=== PATIENT | male | born 1975 | race American Indian/Alaskan Native ===

== ENCOUNTER 2021-10-16 05:31 | Inpatient (IN) | payer BC, OTHER ==
[2021-10-16] MEDS ORDERED: SODIUM CHLORIDE 0.9% 1000 ML 1,000 ML ONE (05:53)
[2021-10-16] MEDS ORDERED: MORPHINE 4 MG/1 ML INJ IV ONE (06:01)
[2021-10-16] MEDS ORDERED: ONDANSETRON 4 MG/2 ML INJ IV ONE (06:01)
--- NOTE | 2021-10-16 06:11 | Emergency Department Report ---
ED Abdominal Pain HPI - General Chief Complaint: Dyspnea/Respdistress Stated Complaint: DIFFICULTY BREATHING Time Seen by Provider: 10/16/21 06:00 Source: patient Mode of arrival: Ambulatory Limitations: Other - History of Present Illness Initial Comments: Patient is a 45-year-old male presenting to ED with complaint of acute onset sharp right lower quadrant pain radiating to his flank approximately 1 hour ago. He reports history of kidney stones. States he also developed chest discomfort and shortness of breath. He denies history of coronary artery disease. States he had COVID last year and was placed on a ventilator for 8 days. He denies any fever or chills. - Related Data Allergies Allergy/AdvReac Type Severity Reaction Status Date / Time Penicillins Allergy Unknown Verified 10/16/21 05:42 ED Review of Systems ROS: Stated complaint: DIFFICULTY BREATHING Other details as noted in HPI Comment: All other systems reviewed and negative Constitutional: denies: chills, fever ENT: denies: ear pain, throat pain Respiratory: shortness of breath Cardiovascular: chest pain Gastrointestinal: abdominal pain Musculoskeletal: denies: back pain, joint swelling, arthralgia Skin: denies: rash, lesions Neurological: denies: headache, weakness, paresthesias Psychiatric: denies: anxiety, depression ED Physical Exam - General Limitations: No Limitations General appearance: alert, in distress - Head Head exam: Present: atraumatic, normocephalic - Respiratory Respiratory exam: Present: normal lung sounds bilaterally. Absent: respiratory distress, wheezes, rales - Cardiovascular Cardiovascular Exam: Present: regular rate, normal rhythm, normal heart sounds - GI/Abdominal GI/Abdominal exam: Present: soft. Absent: distended, tenderness - Extremities Exam Extremities exam: Present: normal inspection - Back Exam Back exam: Present: normal inspection - Neurological Exam Neurological exam: Present: alert, oriented X3 - Psychiatric Psychiatric exam: Present: normal affect, normal mood - Skin Skin exam: Present: warm, dry, intact, normal color ED Course Vital Signs 10/16/21 10/16/21 10/16/21 05:46 06:00 06:01 Pulse Rate 76 Respiratory 12 Rate Blood Pressure 226/150 Blood Pressure [Left] O2 Sat by Pulse 95 92 Oximetry 10/16/21 10/16/21 10/16/21 06:15 06:36 09:13 Pulse Rate 83 62 Respiratory 28 H 19 Rate Blood Pressure 228/153 Blood Pressure 191/121 [Left] O2 Sat by Pulse 93 94 98 Oximetry 10/16/21 10:24 Pulse Rate 63 Respiratory 16 Rate Blood Pressure Blood Pressure 184/104 [Left] O2 Sat by Pulse 99 Oximetry ED Medical Decision Making - Lab Data Result diagrams: 10/16/21 05:57 10/16/21 05:57 - Medical Decision Making Patient presenting to the emergency department with acute right lower quadrant pain radiating to the right flank. He also presented with shortness of breath. He was hypoxic in triage requiring supplemental oxygen. He is currently at 6 L satting 97 to 98%. Chest x-ray reveals bilateral pneumonia. WBC count is within normal limits. He was given IV Levaquin. CT abdomen and pelvis reveals a 5 mm calculus in the distal right ureter with mild hydro-. Creatinine 2.2. Urinalysis unremarkable. I discussed case with urologist Dr. Trivedi who states that in these instances they will usually observe and allow the stone to pass. States he will see patient as an outpatient. Will admit for likely community- acquired pneumonia. COVID PCR pending. Critical care attestation.: If time is entered above; I have spent that time in minutes in the direct care of this critically ill patient, excluding procedure time. ED Disposition Clinical Impression: Bilateral pneumonia, Ureteral calculus, right Disposition: 09 ADMITTED INPATIENT Is pt being admited?: Yes Condition: Stable Instructions: Bacterial Pneumonia (ED)
[2021-10-16] MEDS ORDERED: hydrALAZINE 20 MG/1 ML INJ IV ONE (06:13)
[2021-10-16 06:24] LABS: ABG Base Excess -4.1 mmol/L (-2.0-3.0); ABG HCO3 19.1 mmol/L (20.0-26.0); ABG Methemoglobin 0.5 % (0.0-1.5); ABG Oxygen Saturation 96.9 % (95.0-99.0); ABG PCO2 31.1 mm Hg; ABG PH 7.408 pH Units (7.350-7.450); ABG PO2 87.7 mm Hg (80.0-90.0)
[2021-10-16 06:39] LABS: Basophils % (Auto) 0.5 % (0.0-1.8); Eosinophils # (Auto) 0.2 K/mm3 (0.0-0.4); Eosinophils % (Auto) 4.8 % (0.0-4.3); Hematocrit 49.8 % (35.5-45.6); Hemoglobin 16.5 gm/dl (11.8-15.2); Lymphocytes # (Auto) 2.3 K/mm3 (1.2-5.4); Lymphocytes % (Auto) 53.4 % (13.4-35.0); Mean Corpuscular HGB Conc 33 % (32-34); Mean Corpuscular Volume 93 fl (84-94); Monocytes # (Auto) 0.2 K/mm3 (0.0-0.8); Monocytes % (Auto) 5.1 % (0.0-7.3); Platelet Count 177 K/mm3 (140-440); Red Blood Count 5.37 M/mm3 (3.65-5.03); Red Cell Distribution Width 15.6 % (13.2-15.2)
[2021-10-16 06:47] LABS: INR 0.96 (0.87-1.13)
[2021-10-16] MEDS ORDERED: KETOROLAC 30 MG/1 ML INJ IV ONE (06:47)
[2021-10-16 06:59] LABS: Calcium 9.7 mg/dL (8.4-10.2)
--- NOTE | 2021-10-16 06:59 | XRay Report ---
CHEST 1 VIEW INDICATION / CLINICAL INFORMATION: Shortness of breath. COMPARISON: None available. FINDINGS: SUPPORT DEVICES: None. HEART / MEDIASTINUM: Cardiomegaly LUNGS / PLEURA: Moderate bilateral parenchymal disease No pneumothorax. ADDITIONAL FINDINGS: No significant additional findings. IMPRESSION: 1. Bilateral pneumonia Signer Name: Miller Gutierrez MD Signed: 10/16/2021 6:55 AM Workstation Name: [id number]
--- NOTE | 2021-10-16 08:55 | Cat Scan Report ---
CT ABDOMEN AND PELVIS WITHOUT CONTRAST INDICATION / CLINICAL INFORMATION: Right flank pain. TECHNIQUE: Axial CT images were obtained through the abdomen and pelvis without IV contrast. All CT scans at this location are performed using CT dose reduction for ALARA by means of automated exposure control. COMPARISON: None available. FINDINGS: LOWER CHEST: Small basilar effusions. Patchy infiltrates at the lung bases. Cardiomegaly. LIVER: No significant abnormality. GALLBLADDER: No significant abnormality. BILE DUCTS: No significant abnormality. PANCREAS: No significant abnormality. SPLEEN: No significant abnormality. ADRENALS: No significant abnormality. RIGHT KIDNEY / URETER: Several nonobstructing stones with the largest the lower pole measuring 4 mm. Moderate distention of the right renal collecting system and ureter extending the level of a 5 mm sto ne at the distal ureterovesical junction. LEFT KIDNEY / URETER: Numerous nonobstructing stones the largest measuring 3-4 mm. 1.4 cm lesion vera es from the anterior aspect (series 2, image 57). This is not a simple cyst. STOMACH / SMALL BOWEL: No significant abnormality. COLON: No significant abnormality. APPENDIX: No significant abnormality. PERITONEUM: No free fluid. No free air. No fluid collection. LYMPH NODES: No significant adenopathy. VASCULAR STRUCTURES: No significant abnormality. URINARY BLADDER: Mild symmetric thickening. REPRODUCTIVE ORGANS: Mild prostate enlargement. ADDITIONAL FINDINGS: Small fat-containing umbilical hernia. SKELETAL SYSTEM: No significant abnormality. IMPRESSION: 1. 5 mm stone distal right ureter with moderate obstruction. 2. Nonobstructing calyceal stones bilaterally. 3. Small basilar effusions with bibasilar infiltrates worrisome for pneumonia. 4. Mild prostate enlargement with element of bladder outlet obstruction. Signer Name: Ananda Persaud MD Signed: 10/16/2021 8:51 AM Workstation Name: [id number]
[2021-10-16 09:09] LABS: Bilirubin,Urine NEG (Negative); Blood,Urine MOD (Negative); Color,Urine Straw (Yellow); Urobilinogen,Urine < 2.0 mg/dL (<2.0)
[2021-10-16] MEDS ORDERED: oxyCODONE /ACETAMINOPHEN 5-325MG TAB PO PRN (12:47)
[2021-10-16] MEDS ORDERED: ALBUTEROL 2.5 MG/3 ML NEBU IH PRN (12:47)
[2021-10-16] MEDS ORDERED: ONDANSETRON 4 MG/2 ML INJ IV PRN (12:47)
[2021-10-16] MEDS ORDERED: ACETAMINOPHEN 325 MG TAB PO PRN (12:47)
[2021-10-16] MEDS ORDERED: HYDROmorphone 0.5 MG/0.5 ML INJ IV PRN (12:47)
[2021-10-16] MEDS ORDERED: methylPREDNISolone Sod Succinate 125 MG/2 ML INJ ONE (13:08)
[2021-10-16 14:44] LABS: C-Reactive Protein 1.1 mg/dL (0.00-1.30)
[2021-10-16] MEDS: TAMSULOSIN 0.4 MG CAP PO SCH (14:59)
[2021-10-16] MEDS: methylPREDNISolone Sod Succinate 40 MG/1 ML INJ IV SCH ×2 (14:59→22:12)
--- NOTE | 2021-10-16 16:22 | History and Physical Report ---
History of Present Illness Date of admission: 10/16/21 12:47 Chief complaint: My side was hurting and it got hard to breathe History of present illness: 45 YO Male with Obesity Hypoventilation Syndrome, Nephrolithiasis presents to ED for evaluation. Patient reports "my right side is hurting". Patient states that he has experienced abdominal discomfort over the past week with persistent and worsening symptoms over the same timeframe. Patient states his pain is intermittent in nature, 6/10, localized to the right flank, worsened with movement, relieved with nonmovement. Patient transported to [facility] via private vehicle for further care and evaluation of the aforementioned symptoms. The patient was seen and evaluated in the emergency department. All lab and imaging studies reviewed. The patient was found to have a pulse oximetry of 88% on room air which is consistent with acute hypoxemic respiratory failure. Chest x-ray revealed bilateral pneumonia. Patient with CT scan of the abdomen and pelvis and was found to have nephrolithiasis complicated by renal colic, acute kidney injury. Patient also found to have clinical symptoms consistent with CHF decompensation. Patient admitted to medical floor and initiated on pneumonia protocol, coronavirus protocol, as well as CHF protocol. Urology team consulted in ED and will see the patient in the office as an outpatient. Patient denies fever, chills, chest pain, palpitation, productive cough, skin rash, recent contact, ingestion of food/water from new or different sources, hematuria, interruptions in urine stream, recent contact, known exposure to COVID-19. No prior admission for review. No medication listed at time of admission for reconciliation. Advanced care planning conducted in ED. Past History Past Medical History: other (See HPI) Past Surgical History: No surgical history, Other (Reviewed) Social history: single. denies: smoking, alcohol abuse, prescription drug abuse Family history: diabetes, hypertension Medications and Allergies Allergies Allergy/AdvReac Type Severity Reaction Status Date / Time Penicillins Allergy Unknown Verified 10/16/21 05:42 Home Medications Medication Instructions Recorded Confirmed Last Taken Type Amiodarone [Cordarone 200 MG TAB] 200 mg PO DAILY 10/16/21 10/16/21 10/15/21 09:00 History Apixaban [Eliquis] 5 mg PO BID 10/16/21 10/16/21 10/15/21 09:00 History Isosorbide Dinitrate [Isordil] 20 mg PO TID 10/16/21 10/16/21 10/15/21 09:00 History Potassium Chloride [K-Dur] 20 meq PO BID 10/16/21 10/16/21 10/15/21 09:00 History Torsemide [Demadex] 20 mg PO DAILY 10/16/21 10/16/21 10/15/21 09:00 History carvediloL [Coreg] 25 mg PO BID 10/16/21 10/16/21 10/15/21 09:00 History hydrALAZINE [Apresoline TAB] 100 mg PO TID 10/16/21 10/16/21 10/15/21 09:00 Hi story Active Meds: Active Medications Acetaminophen (Acetaminophen 325 Mg Tab) 650 mg PO Q4H PRN PRN Reason: Pain MILD(1-3)/Fever >100.5/ABRAHAM Albuterol (Albuterol 2.5 Mg/3 Ml Nebu) 2.5 mg IH Q4HRT PRN PRN Reason: Shortness Of Breath Ascorbic Acid (Ascorbic Acid 500 Mg Tab) 500 mg PO BID NEIL Cholecalciferol (Cholecalciferol (Vit D3) 400 Unit Tab) 1,000 unit PO QDAY NEIL Heparin Sodium (Porcine) (Heparin 5,000 Unit/1 Ml Vial) 5,000 unit SUB-Q Q12HR NEIL Hydromorphone HCl (Hydromorphone 0.5 Mg/0.5 Ml Inj) 0.5 mg IV Q13H PRN PRN Reason: Pain , Severe (7-10) Last Admin: 10/16/21 13:38 Dose: 0.5 mg Levofloxacin (Levofloxacin 750 Mg Tab) 750 mg PO Q24HR NEIL; Protocol Methylprednisolone Sodium Succinate (Methylprednisolone Sod Succinate 40 Mg/1 Ml Inj) 40 mg IV Q8HR NEIL Last Admin: 10/16/21 14:59 Dose: 40 mg Ondansetron HCl (Ondansetron 4 Mg/2 Ml Inj) 4 mg IV Q8H PRN PRN Reason: Nausea And Vomiting Oxycodone/Acetaminophen (Oxycodone /Acetaminophen 5-325mg Tab) 1 tab PO Q6H PRN PRN Reason: Pain, Moderate (4-6) Prazosin HCl (Prazosin 1 Mg Cap) 1 mg PO Q12HR NEIL Sodium Chloride (Sodium Chloride 0.9% 10 Ml Flush Syringe) 10 ml IV BID [facility] Sodium Chloride (Sodium Chloride 0.9% 10 Ml Flush Syringe) 10 ml IV PRN PRN PRN Reason: LINE FLUSH Tamsulosin HCl (Tamsulosin 0.4 Mg Cap) 0.4 mg PO QDAY [facility] Last Admin: 10/16/21 14:59 Dose: 0.4 mg Zinc Sulfate (Zinc Sulfate 220 Mg Cap) 220 mg PO BID [facility] Review of Systems Constitutional: no weight loss, no weight gain, no fever, no chills Ears, nose, mouth and throat: no ear pain, no ear discharge, no nose pain, no nasal congestion Cardiovascular: shortness of breath, no chest pain, no orthopnea, no p alpitations, no edema Respiratory: no cough, no excessive sputum, no hemoptysis Gastrointestinal: abdominal pain, nausea, no vomiting Genitourinary Male: flank pain, no dysuria, no hematuria, no discharge, no urinary frequency, no urinary hesitancy Rectal: no pain, no incontinence, no bleeding Musculoskeletal: no neck stiffness, no neck pain, no shooting arm pain, no arm n umbness/tingling, no low back pain Integumentary: no rash, no pruritis, no sores, no jaundice Neurological: no head injury, no paralysis, no weakness, no numbness, no tingling, no syncope, no tremors Psychiatric: no anxiety, no sleep disturbances, no hypersomnia, no change in appetite, no change in libido, no suicidal ideation, no disorientation Endocrine: no cold intolerance, no heat intolerance, no polyphagia, no excessive thirst, no polydipsia, no polyuria, no nocturia Hematologic/Lymphatic: no easy bruising, no easy bleeding, no lymphadenopathy Allergic/Immunologic: no urticaria, no persistent infections, no anaphylaxis, no angioedema Exam - Constitutional Vitals: Temp Pulse Resp BP Pulse Ox 64 16 198/120 98 10/16/21 12:49 10/16/21 12:49 10/16/21 12:49 10/16/21 12:49 General appearance: Present: mild distress, obese - EENT Eyes: Present: PERRL ENT: hearing intact, clear oral mucosa - Neck Neck: Present: supple, normal ROM - Respiratory Respiratory effort: normal Respiratory: bilateral: diminished, rhonchi - Cardiovascular Heart Sounds: Present: S1 & S2. Absent: rub, click - Extremities Extremities: pulses symmetrical, No edema Peripheral Pulses: within normal limits - Abdominal General gastrointestinal: Present: soft, tender, non-distended, normal bowel sounds, absent bowel sounds, hepatomegaly, splenomegaly Male genitourinary: Present: normal - Integumentary Integumentary: Present: clear, warm, dry - Musculoskeletal Musculoskeletal: gait normal, strength equal bilaterally - Psychiatric Psychiatric: appropriate mood/affect, intact judgment & insight - Neurologic Neurologic: CNII-XII intact, moves all extremities HEART Score - HEART Score Troponin: Troponin T 0.025 ng/mL (0.00-0.029) 10/16/21 05:57 Results - Labs CBC & Chem 7: 10/16/21 05:57 10/16/21 05:57 Labs: Abnormal lab results 10/16/21 10/16/21 10/16/21 Range/Units 05:57 05:57 06:05 WBC 4.4 L (4.5-11.0) K/mm3 RBC 5.37 H (3.65-5.03) M/mm3 Hgb 16.5 H (11.8-15.2) gm/dl Hct 49.8 H (35.5-45.6) % RDW 15.6 H (13.2-15.2) % Lymph % (Auto) 53.4 H (13.4-35.0) % Eos % (Auto) 4.8 H (0.0-4.3) % Seg Neutrophils % 36.2 L (40.0-70.0) % Seg Neutrophils # 1.6 L (1.8-7.7) K/mm3 ABG HCO3 19.1 L (20.0-26.0) mmol/L ABG Base Excess -4.1 L (-2.0-3.0) mmol/L Oxyhemoglobin 94.7 L (95.0-99.0) % BUN 26 H (9-20) mg/dL Creatinine 2.2 H (0.8-1.3) mg/dL Glucose 145 H (75-100) mg/dL Lactate Dehydrogenase (91-180) units/L NT-Pro-B Natriuret Pep 1063 H (0-450) pg/mL 10/16/21 Range/Units 13:00 WBC (4.5-11.0) K/mm3 RBC (3.65-5.03) M/mm3 Hgb (11.8-15.2) gm/dl Hct (35.5-45.6) % RDW (13.2-15.2) % Lymph % (Auto) (13.4-35.0) % Eos % (Auto) (0.0-4.3) % Seg Neutrophils % (40.0-70.0) % Seg Neutrophils # (1.8-7.7) K/mm3 ABG HCO3 (20.0-26.0) mmol/L ABG Base Excess (-2.0-3.0) mmol/L Oxyhemoglobin (95.0-99.0) % BUN (9-20) mg/dL Creatinine (0.8-1.3) mg/dL Glucose (75-100) mg/dL Lactate Dehydrogenase 288 H (91-180) units/L NT-Pro-B Natriuret Pep (0-450) pg/mL Assessment and Plan - Patient Problems (1) Acute hypoxemic respiratory failure Current Visit: Yes Status: Acute Plan to address problem: Chest x-ray, supplemental oxygen, pulse oximetry, nebulizer therapy, pulmonary toilet. (2) Pneumonia Current Visit: Yes Status: Acute Plan to address problem: Pneumonia protocol: Chest x-ray, CBC, CMP, supplemental oxygen, pulse oximetry, nebulizer therapy, blood culture. (3) Suspected 2019 novel coronavirus infection Current Visit: Yes Status: Acute Plan to address problem: Coronavirus protocol: IV steroid therapy, IV antibiotic therapy, prophylactic anticoagulation, vitamin C therapy, vitamin D therapy, zinc therapy, (4) Obesity hypoventilation syndrome Current Visit: Yes Status: Acute Plan to address problem: Balanced diet, increase physical activity at discharge, outpatient pulmonary follow-up for sleep study. (5) Acute kidney injury (LAI) with acute tubular necrosis (ATN) Current Visit: Yes Status: Acute Plan to address problem: IV fluid resuscitation therapy, BMP, repeat BMP in a.m., monitor fluid balance, monitor urine output every shift. (6) Ureteral calculus, right Current Visit: Yes Status: Acute Plan to address problem: Urology team notified in ED. Patient does not want intervention at this time. Patient will be seen and evaluated in the urology office as outpatient. (7) DVT prophylaxis Current Visit: Yes Status: Acute Plan to address problem: SCD to bilateral lower extremities while in bed (8) Advance care planning Current Visit: Yes Status: Acute Plan to address problem: Disease education conducted, care plan discussed, diagnoses discussed, prognosis discussed, patient is full code. Patient acknowledges understanding and agre ement with care plan, +30 minutes. (9) Preventative health care Current Visit: Yes Status: Acute Plan to address problem: Patient counseled regarding meal planning, balanced diet, increase physical activity at discharge, outpatient follow-up with primary care physician for all age and risk factor appropriate screening test. +30 minutes.
[2021-10-16] MEDS: hydrALAZINE 100 MG TAB PO SCH ×2 (17:04→22:09)
[2021-10-16] MEDS: carvediloL 25 MG TAB PO SCH ×2 (17:04→22:20)
[2021-10-16] MEDS: AMIODARONE 200 MG TAB PO SCH (17:04)
[2021-10-16 18:38] LABS: Free T4 (Free Thyroxine) 1.73 ng/dL (0.76-1.46)
[2021-10-16] MEDS ORDERED: NON-FORMULARY EACH (Torsemide [Demadex] 20 MG Tablet) PO SCH (22:00)
[2021-10-16] MEDS ORDERED: NON-FORMULARY EACH (Apixaban 5 MG Tablet) PO SCH (22:00)
[2021-10-16] MEDS: ZINC SULFATE 220 MG CAP PO SCH (22:09)
[2021-10-16] MEDS: ASCORBIC ACID 500 MG TAB PO SCH (22:10)
[2021-10-16] MEDS: TORSEMIDE 10 MG TAB PO SCH (22:10)
[2021-10-16] MEDS: POTASSIUM CHLORIDE ER 20 MEQ TAB PO SCH (22:10)
[2021-10-16] MEDS: HEPARIN 5,000 UNIT/1 ML VIAL SUB-Q SCH (22:11)
[2021-10-16] MEDS: ISOSORBIDE DINITRATE 20 MG TAB PO SCH (22:19)
[2021-10-16] MEDS: PRAZOSIN 1 MG CAP PO SCH (23:00)
[2021-10-17] MEDS: methylPREDNISolone Sod Succinate 40 MG/1 ML INJ IV SCH ×3 (05:46→22:49)
[2021-10-17 06:02] LABS: Hematocrit 49.3 % (35.5-45.6); Hemoglobin 16.4 gm/dl (11.8-15.2); Mean Corpuscular HGB Conc 33 % (32-34); Mean Corpuscular Volume 92 fl (84-94); Platelet Count 154 K/mm3 (140-440); Red Blood Count 5.36 M/mm3 (3.65-5.03); Red Cell Distribution Width 15.5 % (13.2-15.2)
[2021-10-17 06:28] LABS: Albumin 4.3 g/dL (3.9-5); Calcium 9.3 mg/dL (8.4-10.2)
[2021-10-17 06:55] LABS: Basophils % (Manual) 0 % (0.0-1.8); Eosinophils % (Manual) 0 % (0.0-4.3); Monocytes % (Manual) 0 % (0.0-7.3); Total Cells Counted 100
[2021-10-17 06:56] LABS: Platelet Estimate Consistent w Auto; RBC Morphology Normal
[2021-10-17] MEDS: PRAZOSIN 1 MG CAP PO SCH ×2 (09:26→22:53)
[2021-10-17] MEDS: carvediloL 25 MG TAB PO SCH ×2 (09:27→22:53)
[2021-10-17] MEDS: CHOLECALCIFEROL (VIT D3) 1000 UNIT (25 mcg) TAB PO SCH (09:27)
[2021-10-17] MEDS: ISOSORBIDE DINITRATE 20 MG TAB PO SCH ×3 (09:27→22:54)
[2021-10-17] MEDS: ZINC SULFATE 220 MG CAP PO SCH ×2 (09:27→22:49)
[2021-10-17] MEDS: levoFLOXacin 750 MG TAB PO SCH (09:27)
[2021-10-17] MEDS: ASCORBIC ACID 500 MG TAB PO SCH ×2 (09:27→22:49)
[2021-10-17] MEDS: TAMSULOSIN 0.4 MG CAP PO SCH (09:27)
[2021-10-17] MEDS: POTASSIUM CHLORIDE ER 20 MEQ TAB PO SCH ×2 (09:28→22:49)
[2021-10-17] MEDS: hydrALAZINE 100 MG TAB PO SCH ×3 (09:28→22:54)
[2021-10-17] MEDS: HEPARIN 5,000 UNIT/1 ML VIAL SUB-Q SCH ×2 (09:28→22:55)
[2021-10-17] MEDS: AMIODARONE 200 MG TAB PO SCH (09:28)
[2021-10-17] MEDS: TORSEMIDE 10 MG TAB PO SCH (09:31)
[2021-10-17] MEDS ORDERED: CHOLECALCIFEROL (VIT D3) 400 UNIT TAB PO SCH (10:00)
--- NOTE | 2021-10-17 11:59 | Progress Note ---
Assessment and Plan Assessment and plan: 45 YO Male with Obesity Hypoventilation Syndrome, Nephrolithiasis presents to ED for evaluation of abdominal discomfort over the past week [employer]. The patient was found to have a pulse oximetry of 88% on room air which is consistent with acute hypoxemic respiratory failure. Chest x-ray revealed bilateral pneumonia. Patient with CT scan of the abdomen and pelvis and was found to have nephrolithiasis complicated by renal colic, acute kidney injury. Urology team consulted in ED and will see the patient in the office as an outpatient. Acute hypoxic respiratory failure Bilateral pneumonia Suspected COVID-19 infection Obesity hypoventilation syndrome Acute kidney injury Right ureteral calculus 10/17/2021. Patient reports that he passed the stone last night while urinating. Patient denies any abdominal or flank pain currently. However, creatinine is worse at 2.9 today. We will consult nephrology for further evaluation. We do not have a baseline creatinine to compare. Continue IV fluid hydration. Follow-up echocardiogram. History Interval history: No new issues overnight Hospitalist Physical - Constitutional Vitals: Temp Pulse Resp BP Pulse Ox 98.6 F 62 20 146/93 100 10/17/21 04:29 10/17/21 04:29 10/17/21 04:29 10/17/21 04:29 10/17/21 07:28 General appearance: Present: no acute distress, obese - EENT Eyes: Present: PERRL, EOM intact ENT: hearing intact, clear oral mucosa, dentition normal - Neck Neck: Present: supple, normal ROM - Respiratory Respiratory effort: normal Respiratory: bilateral: CTA - Cardiovascular Rhythm: regular Heart Sounds: Present: S1 & S2. Absent: gallop, rub - Extremities Extremities: no ischemia, No edema, Full ROM - Abdominal General gastrointestinal: soft, non-tender, non-distended, normal bowel sounds - Integumentary Integumentary: Present: clear, warm, dry - Neurologic Neurologic: CNII-XII intact, moves all extremities HEART Score - HEART Score Troponin: Troponin T 0.025 ng/mL (0.00-0.029) 10/16/21 05:57 Results - Labs CBC & Chem 7: 10/17/21 05:25 10/17/21 05:25 Labs: Laboratory Last Values WBC 10.8 K/mm3 (4.5-11.0) 10/17/21 05:25 RBC 5.36 M/mm3 (3.65-5.03) H 10/17/21 05:25 Hgb 16.4 gm/dl (11.8-15.2) H 10/17/21 05:25 Hct 49.3 % (35.5-45.6) H 10/17/21 05:25 MCV 92 fl (84-94) 10/17/21 05:25 MCH 31 pg (28-32) 10/17/21 05:25 MCHC 33 % (32-34) 10/17/21 05:25 RDW 15.5 % (13.2-15.2) H 10/17/21 05:25 Plt Count 154 K/mm3 (140-440) 10/17/21 05:25 Lymph % (Auto) 53.4 % (13.4-35.0) H 10/16/21 05:57 [place] % (Auto) 5.1 % (0.0-7.3) 10/16/21 05:57 Eos % (Auto) 4.8 % (0.0-4.3) H 10/16/21 05:57 Baso % (Auto) 0.5 % (0.0-1.8) 10/16/21 05:57 Lymph # (Auto) 2.3 K/mm3 (1.2-5.4) 10/16/21 05:57 [place] # (Auto) 0.2 K/mm3 (0.0-0.8) 10/16/21 05:57 Eos # (Auto) 0.2 K/mm3 (0.0-0.4) 10/16/21 05:57 Baso # (Auto) 0.0 K/mm3 (0.0-0.1) 10/16/21 05:57 Add Manual Diff Complete 10/17/21 05:25 Total Counted 100 10/17/21 05:25 Seg Neutrophils % [employer] Room Teller 10/17/21 05:25 Seg Neuts % (Manual) 97.0 % (40.0-70.0) H 10/17/21 05:25 Band Neutrophils % 0 % 10/17/21 05:25 Lymphocytes % (Manual) 3.0 % (13.4-35.0) L 10/17/21 05:25 Reactive Lymphs % (Man) 0 % 10/17/21 05:25 Monocytes % (Manual) 0 % (0.0-7.3) 10/17/21 05:25 Eosinophils % (Manual) 0 % (0.0-4.3) 10/17/21 05:25 Basophils % (Manual) 0 % (0.0-1.8) 10/17/21 05:25 Metamyelocytes % 0 % 10/17/21 05:25 Myelocytes % 0 % 10/17/21 05:25 Promyelocytes % 0 % 10/17/21 05:25 Blast Cells % 0 % 10/17/21 05:25 Nucleated RBC % Not Reportable 10/17/21 05:25 Seg Neutrophils # 1.6 K/mm3 (1.8-7.7) L 10/16/21 05:57 Seg Neutrophils # Man 10.5 K/mm3 (1.8-7.7) H 10/17/21 05:25 Band Neutrophils # 0.0 K/mm3 10/17/21 05:25 Lymphocytes # (Manual) 0.3 K/mm3 (1.2-5.4) L 10/17/21 05:25 Abs React Lymphs (Man) 0.0 K/mm3 10/17/21 05:25 Monocytes # (Manual) 0.0 K/mm3 (0.0-0.8) 10/17/21 05:25 Eosinophils # (Manual) 0.0 K/mm3 (0.0-0.4) 10/17/21 05:25 Basophils # (Manual) 0.0 K/mm3 (0.0-0.1) 10/17/21 05:25 Metamyelocytes # 0.0 K/mm3 10/17/21 05:25 Myelocytes # 0.0 K/mm3 10/17/21 05:25 Promyelocytes # 0.0 K/mm3 10/17/21 05:25 Blast Cells # 0.0 K/mm3 10/17/21 05:25 WBC Morphology Not Reportable 10/17/21 05:25 Hypersegmented Neuts Not Reportable 10/17/21 05:25 Hyposegmented Neuts Not Reportable 10/17/21 05:25 Hypogranular Neuts Not Reportable 10/17/21 05:25 Smudge Cells Not Reportable 10/17/21 05:25 Toxic Granulation Not Reportable 10/17/21 05:25 Toxic Vacuolation Not Reportable 10/17/21 05:25 Dohle Bodies Not Reportable 10/17/21 05:25 Pelger-Huet Anomaly Not Reportable 10/17/21 05:25 Kirit Rods Not Reportable 10/17/21 05:25 Platelet Estimate Consistent w auto 10/17/21 05:25 Clumped Platelets Not Reportable 10/17/21 05:25 Plt Clumps, EDTA Not Reportable 10/17/21 05:25 Large Platelets Not Reportable 10/17/21 05:25 Giant Platelets Not Reportable 10/17/21 05:25 Platelet Satelliting Not Reportable 10/17/21 05:25 Plt Morphology Comment Not Reportable 10/17/21 05:25 RBC Morphology Normal 10/17/21 05:25 Dimorphic RBCs Not Reportable 10/17/21 05:25 Polychromasia Not Reportable 10/17/21 05:25 Hypochromasia Not Reportable 10/17/21 05:25 Poikilocytosis Not Reportable 10/17/21 05:25 Anisocytosis Not Reportable 10/17/21 05:25 Microcytosis Not Reportable 10/17/21 05:25 Macrocytosis Not Reportable 10/17/21 05:25 Spherocytes Not Reportable 10/17/21 05:25 Pappenheimer Bodies Not Reportable 10/17/21 05:25 Sickle Cells Not Reportable 10/17/21 05:25 Target Cells Not Reportable 10/17/21 05:25 Tear Drop Cells Not Reportable 10/17/21 05:25 Ovalocytes Not Reportable 10/17/21 05:25 Helmet Cells Not Reportable 10/17/21 05:25 [place] Bodies Not Reportable 10/17/21 05:25 [place] Rings Not Reportable 10/17/21 05:25 [place] Cells Not Reportable 10/17/21 05:25 Bite Cells Not Reportable 10/17/21 05:25 Crenated Cell Not Reportable 10/17/21 05:25 Elliptocytes Not Reportable 10/17/21 05:25 Acanthocytes (Spur) Not Reportable 10/17/21 05:25 Rouleaux Not Reportable 10/17/21 05:25 Hemoglobin C Crystals Not Reportable 10/17/21 05:25 Schistocytes Not Reportable 10/17/21 05:25 Malaria parasites Not Reportable 10/17/21 05:25 Joe Bodies Not Reportable 10/17/21 05:25 Hem Pathologist Commnt No 10/17/21 05:25 PT 13.8 Sec. (12.2-14.9) 10/16/21 05:57 INR 0.96 (0.87-1.13) 10/16/21 05:57 D-Dimer 216.55 ng/mlDDU (0-234) 10/16/21 13:00 ABG pH 7.408 pH Units (7.350-7.450) 10/16/21 06:05 ABG pCO2 31.1 mm Hg 10/16/21 06:05 ABG pO2 87.7 mm Hg (80.0-90.0) 10/16/21 06:05 ABG HCO3 19.1 mmol/L (20.0-26.0) L 10/16/21 06:05 ABG O2 Saturation 96.9 % (95.0-99.0) 10/16/21 06:05 ABG O2 Content 22.4 (0.0-44) 10/16/21 06:05 ABG Base Excess -4.1 mmol/L (-2.0-3.0) L 10/16/21 06:05 ABG Hemoglobin 16.8 gm/dl (14.0-18.0) 10/16/21 06:05 ABG Carboxyhemoglobin 1.9 % (0.0-5.0) 10/16/21 06:05 ABG Methemoglobin 0.5 % (0.0-1.5) 10/16/21 06:05 Oxyhemoglobin 94.7 % (95.0-99.0) L 10/16/21 06:05 FiO2 100 % 10/16/21 06:05 Sodium 138 mmol/L (137-145) 10/17/21 05:25 Potassium 4.5 mmol/L (3.6-5.0) 10/17/21 05:25 Chloride 103.2 mmol/L (98-107) 10/17/21 05:25 Carbon Dioxide 22 mmol/L (22-30) 10/17/21 05:25 Anion Gap 17 mmol/L 10/17/21 05:25 BUN 33 mg/dL (9-20) H 10/17/21 05:25 Creatinine 2.9 mg/dL (0.8-1.3) H 10/17/21 05:25 Estimated GFR 28 ml/min 10/17/21 05:25 BUN/Creatinine Ratio 11 % 10/17/21 05:25 Glucose 135 mg/dL (75-100) H 10/17/21 05:25 Calcium 9.3 mg/dL (8.4-10.2) 10/17/21 05:25 Magnesium 2.00 mg/dL (1.7-2.3) 10/16/21 17:47 Total Bilirubin 1.00 mg/dL (0.1-1.2) 10/17/21 05:25 AST 28 units/L (5-40) 10/17/21 05:25 ALT 17 units/L (7-56) 10/17/21 05:25 Alkaline Phosphatase 52 units/L (35-129) 10/17/21 05:25 Lactate Dehydrogenase 288 units/L (91-180) H 10/16/21 13:00 Troponin T 0.025 ng/mL (0.00-0.029) 10/16/21 05:57 C-Reactive Protein 1.10 mg/dL (0.00-1.30) 10/16/21 13:00 NT-Pro-B Natriuret Pep 1063 pg/mL (0-450) H 10/16/21 05:57 Total Protein 8.0 g/dL (6.3-8.2) 10/17/21 05:25 Albumin 4.3 g/dL (3.9-5) 10/17/21 05:25 Albumin/Globulin Ratio 1.2 % 10/17/21 05:25 Procalcitonin 0.26 ng/mL (<0.15) 10/16/21 13:00 TSH 0.895 mlU/mL (0.270-4.200) 10/16/21 17:47 Free T4 1.73 ng/dL (0.76-1.46) H 10/16/21 17:47 Urine Color Straw (Yellow) 10/16/21 Unknown Urine Turbidity Clear (Clear) 10/16/21 Unknown Urine pH 6.0 (5.0-7.0) 10/16/21 Unknown Ur Specific [place] 1.008 (1.003-1.030) 10/16/21 Unknown Urine Protein 100 mg/dl mg/dL (Negative) 10/16/21 Unknown Urine Glucose (UA) 50 mg/dL (Negative) 10/16/21 Unknown Urine Ketones Neg mg/dL (Negative) 10/16/21 Unknown Urine Blood Mod (Negative) 10/16/21 Unknown Urine Nitrite Neg (Negative) 10/16/21 Unknown Urine Bilirubin Neg (Negative) 10/16/21 Unknown Urine Urobilinogen < 2.0 mg/dL (<2.0) 10/16/21 Unknown Ur Leukocyte Esterase Neg (Negative) 10/16/21 Unknown Urine WBC (Auto) 1.0 /HPF (0.0-6.0) 10/16/21 Unknown Urine RBC (Auto) 22.0 /HPF (0.0-6.0) 10/16/21 Unknown U Epithel Cells (Auto) < 1.0 /HPF (0-13.0) 10/16/21 Unknown SARS-CoV-2 (PCR) Negative (Negative) 10/16/21 14:05 [place]/IV: Voiding Method Toilet Active Medications - Current Medications Current Medications: Generic Name Dose Route Start Last Admin Trade Name Freq PRN Reason Stop Dose Admin Acetaminophen 650 mg 10/16/21 12:47 Acetaminophen 325 Mg Tab PO Q4H PRN Pain MILD(1-3)/Fever >100.5/ABRAHAM Albuterol 2.5 mg 10/16/21 12:47 Albuterol 2.5 Mg/3 Ml Nebu IH Q4HRT PRN Shortness Of Breath Amiodarone HCl 200 mg 10/16/21 16:20 10/17/21 09:28 Amiodarone 200 Mg Tab PO 200 mg DAILY NEIL Administration Ascorbic Acid 500 mg 10/16/21 22:00 10/17/21 09:27 Ascorbic Acid 500 Mg Tab PO 500 mg BID NEIL Administration Carvedilol 25 mg 10/16/21 16:20 10/17/21 09:27 Carvedilol 25 Mg Tab PO 25 mg BID NEIL Administration Cholecalciferol 1,000 unit 10/17/21 10:00 10/17/21 09:27 Cholecalciferol (Vit D3) 1000 Unit (25 Mcg) Tab PO 1,000 unit QDAY NEIL Administration Heparin Sodium (Porcine) 5,000 unit 10/16/21 22:00 10/17/21 09:28 Heparin 5,000 Unit/1 Ml Vial SUB-Q 5,000 unit Q12HR NEIL Administration Hydralazine HCl 100 mg 10/16/21 16:20 10/17/21 09:28 Hydralazine 100 Mg Tab PO 100 mg TID NEIL Administration Hydromorphone HCl 0.5 mg 10/16/21 12:47 10/16/21 13:38 Hydromorphone 0.5 Mg/0.5 Ml Inj IV 0.5 mg Q13H PRN Administration Pain , Severe (7-10) Isosorbide Dinitrate 20 mg 10/16/21 20:00 10/17/21 09:27 Isosorbide Dinitrate 20 Mg Tab PO 20 mg TID NEIL Administration Levofloxacin 750 mg 10/17/21 10:00 10/17/21 09:27 Levofloxacin 750 Mg Tab PO 10/21/21 10:01 750 mg Q24HR NEIL Administration Protocol Methylprednisolone Sodium Succinate 40 mg 10/16/21 14:00 10/17/21 05:46 Methylprednisolone Sod Succinate 40 Mg/1 Ml Inj IV 40 mg Q8HR NEIL Administration Ondansetron HCl 4 mg 10/16/21 12:47 Ondansetron 4 Mg/2 Ml Inj IV Q8H PRN Nausea And Vomiting Oxycodone/Acetaminophen 1 tab 10/16/21 12:47 Oxycodone /Acetaminophen 5-325mg Tab PO Q6H PRN Pain, Moderate (4-6) Potassium Chloride 20 meq 10/16/21 22:00 10/17/21 09:28 Potassium Chloride Er 20 Meq Tab PO 20 meq BID NEIL Administration Prazosin HCl 1 mg 10/16/21 22:00 10/17/21 09:26 Prazosin 1 Mg Cap PO 1 mg Q12HR NEIL Administration Sodium Chloride 10 ml 10/16/21 22:00 10/17/21 09:28 Sodium Chloride 0.9% 10 Ml Flush Syringe IV 10 ml BID NEIL Administration Sodium Chloride 10 ml 10/16/21 12:47 Sodium Chloride 0.9% 10 Ml Flush Syringe IV PRN PRN LINE FLUSH Tamsulosin HCl 0.4 mg 10/16/21 12:51 10/17/21 09:27 Tamsulosin 0.4 Mg Cap PO 0.4 mg QDAY NEIL Administration Torsemide 20 mg 10/16/21 22:00 10/17/21 09:31 Torsemide 10 Mg Tab PO 20 mg QDAY NEIL Administration Zinc Sulfate 220 mg 10/16/21 22:00 10/17/21 09:27 Zinc Sulfate 220 Mg Cap PO 220 mg BID NEIL Administration
--- NOTE | 2021-10-17 12:21 | Electrocardiograph Report ---
[facility] Test Date: 2021-10-16 Test Time: 05:47:14 Pat Name: DARWIN COTE Department: Room: A385 Gender: M Assembly Inspector: KOBE : 1975 Requested By: SHADI WALLACE Order Number: [id number] Reading MD: Stephanie Banerjee Measurements Intervals [place] Rate: 75 P: 58 ME: 213 QRS: 100 QRSD: 121 T: 18 QT: 408 QTc: 456 Interpretive Statements Sinus rhythm Prolonged ME interval Left atrial enlargement Nonspecific intraventricular conduction delay Possible old lateral infarct No previous ECG available for comparison Electronically Signed On 10-17-2021 12:21:27 EDT by Stephanie Banerjee
[2021-10-18] MEDS: methylPREDNISolone Sod Succinate 40 MG/1 ML INJ IV SCH ×3 (05:05→22:10)
[2021-10-18 05:35] LABS: Calcium 9.2 mg/dL (8.4-10.2)
[2021-10-18] MEDS: PRAZOSIN 1 MG CAP PO SCH ×2 (09:05→22:09)
[2021-10-18] MEDS: CHOLECALCIFEROL (VIT D3) 1000 UNIT (25 mcg) TAB PO SCH (09:05)
[2021-10-18] MEDS: TAMSULOSIN 0.4 MG CAP PO SCH (09:05)
[2021-10-18] MEDS: TORSEMIDE 10 MG TAB PO SCH (09:05)
[2021-10-18] MEDS: ISOSORBIDE DINITRATE 20 MG TAB PO SCH ×3 (09:05→21:00)
[2021-10-18] MEDS: carvediloL 25 MG TAB PO SCH ×2 (09:05→22:09)
[2021-10-18] MEDS: levoFLOXacin 750 MG TAB PO SCH (09:06)
[2021-10-18] MEDS: HEPARIN 5,000 UNIT/1 ML VIAL SUB-Q SCH ×2 (09:06→22:10)
[2021-10-18] MEDS: AMIODARONE 200 MG TAB PO SCH (09:06)
[2021-10-18] MEDS: ASCORBIC ACID 500 MG TAB PO SCH ×2 (09:06→22:09)
[2021-10-18] MEDS: ZINC SULFATE 220 MG CAP PO SCH ×2 (09:06→23:24)
[2021-10-18] MEDS: POTASSIUM CHLORIDE ER 20 MEQ TAB PO SCH ×2 (09:06→22:10)
[2021-10-18] MEDS: hydrALAZINE 100 MG TAB PO SCH ×3 (09:06→21:00)
--- NOTE | 2021-10-18 09:50 | Progress Note ---
Assessment and Plan Assessment and Plan - Patient Problems (1) Acute hypoxemic respiratory failure Current Visit: Yes Status: Acute Plan to address problem: Chest x-ray, supplemental oxygen, pulse oximetry, nebulizer therapy, pulmonary toilet. (2) Pneumonia Current Visit: Yes Status: Acute Plan to address problem: Pneumonia protocol: Chest x-ray, CBC, CMP, supplemental oxygen, pulse oximetry, nebulizer therapy, blood culture. (3) Suspected 2019 novel coronavirus infection Current Visit: Yes Status: Acute Plan to address problem: COVID-negative (4) Obesity hypoventilation syndrome Current Visit: Yes Status: Acute Plan to address problem: Balanced diet, increase physical activity at discharge, outpatient pulmonary follow-up for sleep study. (5) Acute kidney injury (LAI) with acute tubular necrosis (ATN) Current Visit: Yes Status: Acute Plan to address problem: IV fluid resuscitation therapy, BMP, repeat BMP in a.m., monitor fluid balance, monitor urine output every shift. (6) Ureteral calculus, right Current Visit: Yes Status: Acute Plan to address problem: Urology team notified in ED. Patient does not want intervention at this time. Patient will be seen and evaluated in the urology office as outpatient. (7) DVT prophylaxis Current Visit: Yes Status: Acute Plan to address problem: SCD to bilateral lower extremities while in bed (8) Advance care planning Current Visit: Yes Status: Acute Plan to address problem: Disease education conducted, care plan discussed, diagnoses discussed, prognosis discussed, patient is full code. Patient acknowledges understanding and agreement with care plan, +30 minutes. (9) Preventative health care Current Visit: Yes Status: Acute Plan to address problem: Patient counseled regarding meal planning, balanced diet, increase physical activity at discharge, outpatient follow-up with primary care physician for all age and risk factor appropriate screening test. +30 minutes. Discharge planning issues Improved a lot Possible discharge tomorrow Subjective Date of service: 10/18/21 Principal diagnosis: Acute respiratory failure with hypoxia Interval history: 45 YO Male with Obesity Hypoventilation Syndrome, Nephrolithiasis presents to ED for evaluation. Patient reports "my right side is hurting". Patient states that he has experienced abdominal discomfort over the past week with persistent and worsening symptoms over the same timeframe. Patient states his pain is intermittent in nature, 6/10, localized to the right flank, worsened with movement, relieved with nonmovement. Patient transported to [facility] via private vehicle for further care and evaluation of the aforementioned symptoms. The patient was seen and evaluated in the emergency department. All lab and imaging studies reviewed. The patient was found to have a pulse oximetry of 88% on room air which is consistent with acute hypoxemic respiratory failure. Chest x-ray revealed bilateral pneumonia. Patient with CT scan of the abdomen and pelvis and was found to have nephrolithiasis complicated by renal colic, acute kidney injury. Patient also found to have clinical symptoms consistent with CHF decompensation. Patient admitted to medical floor and initiated on pneumonia protocol, coronavirus protocol, as well as CHF protocol. Urology team consulted in ED and will see the patient in the office as an outpatient. Patient denies fever, chills, chest pain, palpitation, productive cough, skin rash, recent contact, ingestion of food/water from new or different sources, hematuria, interruptions in urine stream, recent contact, known exposure to COVID-19. No prior admission for review. No medication listed at time of admission for reconciliation. Advanced care planning conducted in ED. Objective - Constitutional Vitals: Vital Signs - 12hr 10/17/21 10/17/21 10/17/21 22:51 22:53 22:54 Temperature 98.3 F Pulse Rate 66 65 65 Respiratory 20 Rate Blood Pressure 171/98 171/98 171/98 O2 Sat by Pulse 94 Oximetry 10/18/21 10/18/21 04:34 07:02 Temperature 98.4 F Pulse Rate 65 Respiratory 20 Rate Blood Pressure 138/91 O2 Sat by Pulse 96 100 Oximetry General appearance: Present: no acute distress, well-nourished - EENT Eyes: PERRL, EOM intact ENT: hearing intact, clear oral mucosa Ears: bilateral: normal - Neck Neck: supple, normal ROM - Respiratory Respiratory effort: normal Respiratory: bilateral: CTA, wheezing (Scattered) - Breasts Breasts: normal - Cardiovascular Heart rate: 78 Rhythm: regular Heart Sounds: Present: S1 & S2. Absent: gallop, rub Extremities: pulses intact, No edema, normal color, Full ROM - Gastrointestinal General gastrointestinal: Present: soft, non-tender, non-distended, normal bowel sounds - Genitourinary Male genitourinary: normal - Integumentary Integumentary: clear, warm, dry - Musculoskeletal Musculoskeletal: 1, strength equal bilaterally - Neurologic Neurologic: moves all extremities - Psychiatric Psychiatric: memory intact, appropriate mood/affect, intact judgment & insight - Labs CBC & Chem 7: 10/17/21 05:25 10/19/21 06:50 Labs: Abnormal lab results 10/18/21 Range/Units 05:02 Carbon Dioxide 20 L (22-30) mmol/L BUN 51 H (9-20) mg/dL Creatinine 2.9 H (0.8-1.3) mg/dL Glucose 140 H (75-100) mg/dL HEART Score - HEART Score Troponin: Troponin T 0.025 ng/mL (0.00-0.029) 10/16/21 05:57
--- NOTE | 2021-10-18 11:50 | Consultation ---
History of Present Illness - Reason for Consult Consult date: 10/18/21 acute renal failure Past History Past Medical History: other (See HPI) Past Surgical History: No surgical history, Other (Reviewed) Social history: single. denies: smoking, alcohol abuse, prescription drug abuse Family history: diabetes, hypertension Medications and Allergies Allergies Allergy/AdvReac Type Severity Reaction Status Date / Time Penicillins Allergy Unknown Verified 10/17/21 12:28 shellfish derived Allergy Shortness Verified 10/17/21 12:29 of Breath Home Medications Medication Instructions Recorded Confirmed Last Taken Type Amiodarone [Cordarone 200 MG TAB] 200 mg PO DAILY 10/16/21 10/17/21 10/15/21 09:00 History Apixaban [Eliquis] 5 mg PO BID 10/16/21 10/17/21 10/15/21 09:00 History Isosorbide Dinitrate [Isordil] 20 mg PO TID 10/16/21 10/17/21 10/15/21 09:00 History Potassium Chloride [K-Dur] 20 meq PO BID 10/16/21 10/17/21 10/15/21 09:00 History Torsemide [Demadex] 20 mg PO DAILY 10/16/21 10/17/21 10/15/21 09:00 History carvediloL [Coreg] 25 mg PO BID 10/16/21 10/17/21 10/15/21 09:00 History hydrALAZINE [Apresoline TAB] 100 mg PO TID 10/16/21 10/17/21 10/15/21 09:00 History Multivitamin 1 each PO QDAY 10/17/21 10/17/21 Unknown History Active Meds: Active Medications Acetaminophen (Acetaminophen 325 Mg Tab) 650 mg PO Q4H PRN PRN Reason: Pain MILD(1-3)/Fever >100.5/ABRAHAM Albuterol (Albuterol 2.5 Mg/3 Ml Nebu) 2.5 mg IH Q4HRT PRN PRN Reason: Shortness Of Breath Amiodarone HCl (Amiodarone 200 Mg Tab) 200 mg PO DAILY [facility] Last Admin: 10/18/21 09:06 Dose: 200 mg Ascorbic Acid (Ascorbic Acid 500 Mg Tab) 500 mg PO BID [facility] Last Admin: 10/18/21 09:06 Dose: 500 mg Carvedilol (Carvedilol 25 Mg Tab) 25 mg PO BID [facility] Last Admin: 10/18/21 09:05 Dose: 25 mg Cholecalciferol (Cholecalciferol (Vit D3) 1000 Unit (25 Mcg) Tab) 1,000 unit PO QDAY [facility] Last Admin: 10/18/21 09:05 Dose: 1,000 unit Heparin Sodium (Porcine) (Heparin 5,000 Unit/1 Ml Vial) 5,000 unit SUB-Q Q12HR [facility] Last Admin: 10/18/21 09:06 Dose: 5,000 unit Hydralazine HCl (Hydralazine 100 Mg Tab) 100 mg PO TID [facility] Last Admin: 10/18/21 09:06 Dose: 100 mg Hydromorphone HCl (Hydromorphone 0.5 Mg/0.5 Ml Inj) 0.5 mg IV Q13H PRN PRN Reason: Pain , Severe (7-10) Last Admin: 10/16/21 13:38 Dose: 0.5 mg Isosorbide Dinitrate (Isosorbide Dinitrate 20 Mg Tab) 20 mg PO TID [facility] Last Admin: 10/18/21 09:05 Dose: 20 mg Levofloxacin (Levofloxacin 750 Mg Tab) 750 mg PO Q48HR [facility]; Protocol Stop: 10/22/21 10:59 Methylprednisolone Sodium Succinate (Methylprednisolone Sod Succinate 40 Mg/1 Ml Inj) 40 mg IV Q8HR [facility] Last Admin: 10/18/21 05:05 Dose: 40 mg Ondansetron HCl (Ondansetron 4 Mg/2 Ml Inj) 4 mg IV Q8H PRN PRN Reason: Nausea And Vomiting Oxycodone/Acetaminophen (Oxycodone /Acetaminophen 5-325mg Tab) 1 tab PO Q6H PRN PRN Reason: Pain, Moderate (4-6) Potassium Chloride (Potassium Chloride Er 20 Meq Tab) 20 meq PO BID [facility] Last Admin: 10/18/21 09:06 Dose: 20 meq Prazosin HCl (Prazosin 1 Mg Cap) 1 mg PO Q12HR [facility] Last Admin: 10/18/21 09:05 Dose: 1 mg Sodium Chloride (Sodium Chloride 0.9% 10 Ml Flush Syringe) 10 ml IV BID [facility] Last Admin: 10/18/21 09:05 Dose: 10 ml Sodium Chloride (Sodium Chloride 0.9% 10 Ml Flush Syringe) 10 ml IV PRN PRN PRN Reason: LINE FLUSH Tamsulosin HCl (Tamsulosin 0.4 Mg Cap) 0.4 mg PO QDAY [facility] Last Admin: 10/18/21 09:05 Dose: 0.4 mg Torsemide (Torsemide 10 Mg Tab) 20 mg PO QDAY [facility] Last Admin: 10/18/21 09:05 Dose: 20 mg Zinc Sulfate (Zinc Sulfate 220 Mg Cap) 220 mg PO BID [facility] Last Admin: 10/18/21 09:06 Dose: 220 mg Exam - Vital Signs Vital signs: Vital Signs Pulse Ox 95 10/16/21 05:46 Results - Lab Results 10/17/21 05:25 10/18/21 05:02 Most recent lab results ABG pH 7.408 pH Units (7.350-7.450) 10/16/21 06:05 ABG pCO2 31.1 mm Hg 10/16/21 06:05 ABG pO2 87.7 mm Hg (80.0-90.0) 10/16/21 06:05 ABG HCO3 19.1 mmol/L (20.0-26.0) L 10/16/21 06:05 ABG O2 Saturation 96.9 % (95.0-99.0) 10/16/21 06:05 Calcium 9.2 mg/dL (8.4-10.2) 10/18/21 05:02 Magnesium 2.00 mg/dL (1.7-2.3) 10/16/21 17:47 Assessment and Plan 1. Acute kidney injury: Likely vasomotor LIA. Likely baseline CKD. CT showed r sided hydronephrosis 2/2 ureteral stone. Urine studies ordered. Monitor renal function. renal prognosis guarded. Avoid Nephrotoxic agents. Mesd dosage based on GFR. 2. FEN: Monitor lytes and volume status. 3. Acute hypoxemic respiratory failure: 2/2 PNA. Supplemental O2 as needed. Nebulizer therapy, pulmonary toilet. 4 Pneumonia: Pneumonia protocol. Covid test negative. 5. Hypertensive urgeny: Adjust BP meds as needed. Monitor BP. 6. R ureteral stone with R moderate hydro: Monitor. Subjective: Patient was seen and examined at the bedside. Examination: General appearance: obese, well-developed, appears stated age, no distress HEENT: atraumatic, pupils equal Neck: trachea midline Respiratory: ctab Heart: S1S2, regular, no murmur Abdomen: soft, obese, bowel sounds heard, NT Integumentary: no obvious rash Neurologic: AO, able to move extremities Ext: L LE 2+ and R LE 1+ edema
--- NOTE | 2021-10-18 16:18 | Progress Note ---
Subjective Date of service: 10/18/21 Objective - Constitutional Vitals: Vital Signs - 12hr 10/18/21 10/18/21 10/18/21 04:34 07:02 12:04 Temperature 98.4 F 97.7 F Pulse Rate 65 64 Respiratory 20 18 Rate Blood Pressure 138/91 169/100 O2 Sat by Pulse 96 100 93 Oximetry - Labs CBC & Chem 7: 10/17/21 05:25 10/18/21 05:02 Labs: Abnormal lab results 10/18/21 Range/Units 05:02 Carbon Dioxide 20 L (22-30) mmol/L BUN 51 H (9-20) mg/dL Creatinine 2.9 H (0.8-1.3) mg/dL Glucose 140 H (75-100) mg/dL HEART Score - HEART Score Troponin: Troponin T 0.025 ng/mL (0.00-0.029) 10/16/21 05:57
[2021-10-19] MEDS: methylPREDNISolone Sod Succinate 40 MG/1 ML INJ IV SCH ×2 (05:42→14:32)
[2021-10-19 07:13] LABS: Hematocrit 47.3 % (35.5-45.6); Hemoglobin 15.4 gm/dl (11.8-15.2); Mean Corpuscular HGB Conc 33 % (32-34); Mean Corpuscular Volume 93 fl (84-94); Platelet Count 146 K/mm3 (140-440); Red Cell Distribution Width 16.1 % (13.2-15.2)
[2021-10-19 07:29] LABS: Albumin 4.2 g/dL (3.9-5); Calcium 9.1 mg/dL (8.4-10.2)
--- NOTE | 2021-10-19 08:21 | Progress Note ---
Assessment and Plan 1. Acute kidney injury: Likely vasomotor LAI. Likely baseline CKD. CT showed r sided hydronephrosis 2/2 ureteral stone. Urine studies ordered. Monitor renal function. renal prognosis guarded. Avoid Nephrotoxic agents. Mesd dosage based on GFR. 2. FEN: Monitor lytes and volume status. 3. Acute hypoxemic respiratory failure: 2/2 PNA. Supplemental O2 as needed. Nebulizer therapy, pulmonary toilet. 4 Pneumonia: Pneumonia protocol. Covid test negative. 5. Hypertensive urgeny: Adjust BP meds as needed. Monitor BP. 6. R ureteral stone with R moderate hydro: Monitor. Subjective: Patient was seen and examined at the bedside. Examination: General appearance: obese, well-developed, appears stated age, no distress HEENT: atraumatic, pupils equal Neck: trachea midline Respiratory: ctab Heart: S1S2, regular, no murmur Abdomen: soft, obese, bowel sounds heard, NT Integumentary: no obvious rash Neurologic: AO, able to move extremities Ext: L LE 2+ and R LE 1+ edema Subjective Date of service: 10/19/21 Principal diagnosis: Acute respiratory failure with hypoxia Objective - Vital Signs Vital signs: Vital Signs - 12hr 10/18/21 10/18/21 10/18/21 21:00 21:06 21:11 Temperature 98.2 F Pulse Rate 84 67 70 Respiratory 20 Rate Blood Pressure 200/110 191/114 193/114 O2 Sat by Pulse 98 86 Oximetry 10/18/21 10/19/21 10/19/21 22:09 00:54 05:44 Temperature 98.2 F 97.6 F Pulse Rate 70 58 L 59 L Respiratory 20 17 Rate Blood Pressure 193/114 150/90 152/100 O2 Sat by Pulse 93 98 Oximetry 10/19/21 07:43 Temperature Pulse Rate Respiratory Rate Blood Pressure O2 Sat by Pulse 97 Oximetry - Lab 10/19/21 06:50 10/19/21 06:50 Most recent lab results ABG pH 7.408 pH Units (7.350-7.450) 10/16/21 06:05 ABG pCO2 31.1 mm Hg 10/16/21 06:05 ABG pO2 87.7 mm Hg (80.0-90.0) 10/16/21 06:05 ABG HCO3 19.1 mmol/L (20.0-26.0) L 10/16/21 06:05 ABG O2 Saturation 96.9 % (95.0-99.0) 10/16/21 06:05 Calcium 9.1 mg/dL (8.4-10.2) 10/19/21 06:50 Magnesium 2.00 mg/dL (1.7-2.3) 10/16/21 17:47 Medications & Allergies - Medications Allergies/Adverse Reactions: Allergies Penicillins Allergy (Verified 10/17/21 12:28) Unknown shellfish derived Allergy (Verified 10/17/21 12:29) Shortness of Breath Home Medications: Home Medications Medication Instructions Recorded Confirmed Last Taken Type Amiodarone [Cordarone 200 MG TAB] 200 mg PO DAILY 10/16/21 10/17/21 10/15/21 09:00 History Apixaban [Eliquis] 5 mg PO BID 10/16/21 10/17/21 10/15/21 09:00 History Isosorbide Dinitrate [Isordil] 20 mg PO TID 10/16/21 10/17/21 10/15/21 09:00 History Potassium Chloride [K-Dur] 20 meq PO BID 10/16/21 10/17/21 10/15/21 09:00 History Torsemide [Demadex] 20 mg PO DAILY 10/16/21 10/17/21 10/15/21 09:00 History carvediloL [Coreg] 25 mg PO BID 10/16/21 10/17/21 10/15/21 09:00 History hydrALAZINE [Apresoline TAB] 100 mg PO TID 10/16/21 10/17/21 10/15/21 09:00 History Multivitamin 1 each PO QDAY 10/17/21 10/17/21 Unknown History Active Medications: Generic Name Dose Route Start Last Admin Trade Name Freq PRN Reason Stop Dose Admin Acetaminophen 650 mg 10/16/21 12:47 Acetaminophen 325 Mg Tab PO Q4H PRN Pain MILD(1-3)/Fever >100.5/ABRAHAM Albuterol 2.5 mg 10/16/21 12:47 Albuterol 2.5 Mg/3 Ml Nebu IH Q4HRT PRN Shortness Of Breath Amiodarone HCl 200 mg 10/16/21 16:20 10/18/21 09:06 Amiodarone 200 Mg Tab PO 200 mg DAILY [facility] Administration Ascorbic Acid 500 mg 10/16/21 22:00 10/18/21 22:09 Ascorbic Acid 500 Mg Tab PO 500 mg BID [facility] Administration Carvedilol 25 mg 10/16/21 16:20 10/18/21 22:09 Carvedilol 25 Mg Tab PO 25 mg BID NEIL Administration Cholecalciferol 1,000 unit 10/17/21 10:00 10/18/21 09:05 Cholecalciferol (Vit D3) 1000 Unit (25 Mcg) Tab PO 1,000 unit QDAY NEIL Administration Heparin Sodium (Porcine) 5,000 unit 10/16/21 22:00 10/18/21 22:10 Heparin 5,000 Unit/1 Ml Vial SUB-Q 5,000 unit Q12HR [facility] Administration Hydralazine HCl 100 mg 10/16/21 16:20 10/18/21 21:00 Hydralazine 100 Mg Tab PO 100 mg TID [facility] Administration Hydromorphone HCl 0.5 mg 10/16/21 12:47 10/16/21 13:38 Hydromorphone 0.5 Mg/0.5 Ml Inj IV 0.5 mg Q13H PRN Administration Pain , Severe (7-10) Isosorbide Dinitrate 20 mg 10/16/21 20:00 10/18/21 21:00 Isosorbide Dinitrate 20 Mg Tab PO 20 mg TID [facility] Administration Levofloxacin 750 mg 10/20/21 10:00 Levofloxacin 750 Mg Tab PO 10/22/21 10:59 Q48HR [facility] Protocol Methylprednisolone Sodium Succinate 40 mg 10/16/21 14:00 10/19/21 05:42 Methylprednisolone Sod Succinate 40 Mg/1 Ml Inj IV 40 mg Q8HR [facility] Administration Ondansetron HCl 4 mg 10/16/21 12:47 Ondansetron 4 Mg/2 Ml Inj IV Q8H PRN Nausea And Vomiting Oxycodone/Acetaminophen 1 tab 10/16/21 12:47 Oxycodone /Acetaminophen 5-325mg Tab PO Q6H PRN Pain, Moderate (4-6) Potassium Chloride 20 meq 10/16/21 22:00 10/18/21 22:10 Potassium Chloride Er 20 Meq Tab PO 20 meq BID [facility] Administration Prazosin HCl 1 mg 10/16/21 22:00 10/18/21 22:09 Prazosin 1 Mg Cap PO 1 mg Q12HR NEIL Administration Sodium Chloride 10 ml 10/16/21 22:00 10/18/21 22:11 Sodium Chloride 0.9% 10 Ml Flush Syringe IV 10 ml BID NEIL Administration Sodium Chloride 10 ml 10/16/21 12:47 Sodium Chloride 0.9% 10 Ml Flush Syringe IV PRN PRN LINE FLUSH Tamsulosin HCl 0.4 mg 10/16/21 12:51 10/18/21 09:05 Tamsulosin 0.4 Mg Cap PO 0.4 mg QDAY NEIL Administration Torsemide 20 mg 10/16/21 22:00 10/18/21 09:05 Torsemide 10 Mg Tab PO 20 mg QDAY NEIL Administration Zinc Sulfate 220 mg 10/16/21 22:00 10/18/21 23:24 Zinc Sulfate 220 Mg Cap PO 220 mg BID NEIL Administration
[2021-10-19] MEDS: hydrALAZINE 100 MG TAB PO SCH ×2 (09:43→14:35)
[2021-10-19] MEDS: TORSEMIDE 10 MG TAB PO SCH (09:43)
[2021-10-19] MEDS: ASCORBIC ACID 500 MG TAB PO SCH (09:43)
[2021-10-19] MEDS: carvediloL 25 MG TAB PO SCH (09:43)
[2021-10-19] MEDS: AMIODARONE 200 MG TAB PO SCH (09:43)
[2021-10-19] MEDS: TAMSULOSIN 0.4 MG CAP PO SCH (09:44)
[2021-10-19] MEDS: HEPARIN 5,000 UNIT/1 ML VIAL SUB-Q SCH (09:44)
[2021-10-19] MEDS: CHOLECALCIFEROL (VIT D3) 1000 UNIT (25 mcg) TAB PO SCH (09:44)
[2021-10-19] MEDS: ZINC SULFATE 220 MG CAP PO SCH (09:44)
[2021-10-19] MEDS: POTASSIUM CHLORIDE ER 20 MEQ TAB PO SCH (09:46)
[2021-10-19] MEDS: ISOSORBIDE DINITRATE 20 MG TAB PO SCH ×2 (09:50→14:35)
[2021-10-19] MEDS: PRAZOSIN 1 MG CAP PO SCH (09:51)
[2021-10-19] MEDS ORDERED: MINOXIDIL 2.5 MG TAB PO SCH (10:00)
[2021-10-19 11:24] LABS: Band Neutrophils # (Manual) 0.1 K/mm3; Basophils % (Manual) 0 % (0.0-1.8); Eosinophils % (Manual) 0 % (0.0-4.3); Platelet Estimate Consistent w Auto; RBC Morphology Normal; Total Cells Counted 100
--- NOTE | 2021-10-19 11:39 | Discharge Summary ---
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 The patient was found to have a pulse oximetry of 88% on room air which is consistent with acute hypoxemic respiratory failure. Chest x-ray revealed bilateral pneumonia. Patient with CT scan of the abdomen and pelvis and was found to have nephrolithiasis complicated by renal colic, acute kidney injury. Urology team consulted in ED and reported that they will see the patient in the office as an outpatient. The patient was admitted with diagnosis below: Acute hypoxic respiratory failure Bilateral pneumonia Suspected COVID-19 infection Obesity hypoventilation syndrome Acute kidney injury Right ureteral calculus The patient reported that he passed the stone the night after admission while urinating. Patient denied any abdominal or flank pain. Nephrology evaluated the patient in consultation and felt that the acute kidney injury was secondary to vasomotor nephropathy and likely has baseline CKD. Patient returned back to his baseline respiratory status with saturations of 97% on room air. COVID PCR was found to be negative. Patient is felt to have received maximal hospital benefit and is back to his baseline. Patient would like to go home. Dedicated discharge time 35 minutes Disposition: 01 HOME / SELF CARE / HOMELESS Final Discharge Diagnosis (Prints w/discharge instructions): Acute hypoxic respiratory failure. Bilateral pneumonia. Obesity hypoventilation syndrome. Acute kidney injury. Right ureteral calculus Core Measure Documentation - Palliative Care Palliative Care/ Comfort Measures: Not Applicable - Core Measures Any of the following diagnoses?: none Exam - Constitutional Vitals: Temp Pulse Resp BP Pulse Ox 97.6 F 66 18 163/100 97 10/19/21 05:44 10/19/21 09:51 10/19/21 07:00 10/19/21 09:51 10/19/21 07:43 General appearance: Present: no acute distress, well-nourished - EENT Eyes: Present: PERRL ENT: hearing intact, clear oral mucosa - Neck Neck: Present: supple, normal ROM - Respiratory Respiratory effort: normal Respiratory: bilateral: CTA - Cardiovascular Heart Sounds: Present: S1 & S2. Absent: rub, click - Extremities Extremities: pulses symmetrical, No edema Peripheral Pulses: within normal limits - Abdominal General gastrointestinal: Present: soft, non-tender, non-distended, normal bowel sounds Male genitourinary: Present: normal - Integumentary Integumentary: Present: clear, warm, dry - Musculoskeletal Musculoskeletal: gait normal, strength equal bilaterally - Psychiatric Psychiatric: appropriate mood/affect, intact judgment & insight - Neurologic Neurologic: CNII-XII intact, moves all extremities Plan Activity: advance as tolerated Weight Bearing Status: Weight Bear as Tolerated Diet: regular Follow up with: [facility] [Other] - 3-5 Days RAFAEL WILCOX MD [Staff Physician] - 7 Days Prescriptions: Tamsulosin [Flomax] 0.4 mg PO QDAY #30 capsule levoFLOXacin [Levaquin TAB] 750 mg PO Q48HR #5 tablet
[2021-10-19 14:36] VITALS: BP 156/101
[2021-10-20] MEDS ORDERED: levoFLOXacin 750 MG TAB PO SCH (10:00)
== END 2021-10-19 18:01 | disposition home or self-care (01) | DRG 193 ==
LOC: ED 05:31 → 3A 12:47
PROVIDERS: ADMIT Internal Medicine; ATTEND Hospitalist
PROC: 4A033R1 Measurement of Arterial Saturation, Peripheral, Percutaneous Approach (ICD-10-PCS; principal; 2021-10-16)
DX: J18.9 Pneumonia, unspecified organism (principal); J96.01 Acute respiratory failure with hypoxia; N17.0 Acute kidney failure with tubular necrosis; N20.1 Calculus of ureter; E66.2 Morbid (severe) obesity with alveolar hypoventilation; N17.8 Other acute kidney failure; Z88.0 Allergy status to penicillin; Z82.49 Family history of ischemic heart disease and other diseases of the circulatory system; Z83.3 Family history of diabetes mellitus
CPT/HCPCS: 36415; 71045; 74176; 80048; 80053; 81001; 82803; 83615; 83735; 83880; 83970; 84145; 84439; 84443; 84484; 85007; 85025; 85379; 85610; 86140; 93005; 93306; 94760; G0378; C8929; J0360; J1644; J1885; J1956; J2270; J2405; J2920; J2930; J7030; U0003